=== PATIENT | female | born 1980 | race Caucasian/White ===

== ENCOUNTER 2018-01-01 07:51 | Inpatient (IN) | payer BC ==
[~2018-01-01] VITALS: Ht 157.5 cm; Wt 61.4 kg
[~2018-01-01 07:51] MED LIST: BENADRYL25 MG PO; MULTIVITAMIN1 EAC2 PO; NEXIUM40 MG PO
[2018-01-01 08:29] LABS: HEMOGLOBIN 14.1 G/DL (11.9-15.5); MCH 31.3 PG (29.0-34.0); MCHC 34.4 G/DL (30.0-36.0); MCV 90.9 FL (83-99); PLATELET COUNT 291 K/uL (156-360); RBC DIS.WIDTH-CV 11.9 % (11.8-14.6); RBC DIS.WIDTH-SD 39.5 % (39-53); RED BLOOD COUNT 4.51 M/uL (3.80-5.20); WHITE BLOOD COUNT 8.6 K/uL (4.1-10.2)
[2018-01-01 08:40] LABS: ALBUMIN 4.6 g/dL (3.2-4.8); CHLORIDE 108 mEq/L (99-109); POTASSIUM 3.8 mEq/L (3.7-5.4); SODIUM 141 mEq/L (136-147)
[2018-01-01 08:43] LABS: GLUCOSE 107 mg/dL (70-99); TOTAL PROTEIN 7.6 g/dL (6.4-8.3)
[2018-01-01 08:45] LABS: TOTAL BILIRUBIN 0.4 mg/dL (0.0-1.0)
[2018-01-01 08:46] LABS: ALKALINE PHOSPHATASE 41 IU/L (3-129); CREATININE 0.8 mg/dL (0.6-1.3); GFR ESTIMATE (CALCULATED) > 59 mL/min/
[2018-01-01 08:48] LABS: AST (GOT) 31 IU/L (2-34); UREA NITROGEN (BUN) 8 mg/dL (9-23)
[2018-01-01 08:49] LABS: ALT (GPT) 10 IU/L (3-49)
[2018-01-01 08:50] LABS: LIPASE 25 U/L (1.0-51.0)
[2018-01-01 08:57] LABS: QUANTITATIVE HCG < 4.0 MIU/ML
[2018-01-01 12:10] LABS: APPEARANCE CLEAR ((CLEAR)); BILIRUBIN NEGATIVE; BLOOD NEGATIVE; COLOR YELLOW ((YELLOW)); GLUCOSE (STRIP) NEGATIVE; KETONES 20; LEUKOCYTES TRACE; NITRITE NEGATIVE; PROTEIN (STRIP) NEGATIVE; UROBILINOGEN 0.2 MG/DL (0.2-1.0)
[2018-01-01 12:16] LABS: SPECIFIC GRAVITY > 1.060 (1.000-1.030)
[2018-01-01 12:18] LABS: BACTERIA NONE SEEN /HPF; EPITHELIAL CELLS 1+ /HPF; MUCUS TRACE /LPF; RED BLOOD CELLS 0-5 /HPF (0-5); UCUL ADDED? NO; WHITE BLOOD CELLS 0-5 /HPF (0-5)
[2018-01-01 15:35] VITALS: BP 106/55
[2018-01-01 20:14] VITALS: BP 112/60
[2018-01-01 23:48] VITALS: BP 99/55
[2018-01-02 04:04] VITALS: BP 110/53
[2018-01-02 06:13] LABS: HEMATOCRIT 25.7 % (36.0-46.0); HEMOGLOBIN 8.5 G/DL (11.9-15.5); MCH 30.8 PG (29.0-34.0); MCHC 33.1 G/DL (30.0-36.0); MCV 93.1 FL (83-99); PLATELET COUNT 218 K/uL (156-360); RBC DIS.WIDTH-CV 12.1 % (11.8-14.6); RBC DIS.WIDTH-SD 41.4 % (39-53); RED BLOOD COUNT 2.76 M/uL (3.80-5.20)
[2018-01-02 06:37] LABS: CHLORIDE 109 MEQ/L (99-109); CREATININE 0.9 MG/DL (0.6-1.3); GFR ESTIMATE (CALCULATED) > 59 mL/min/; GLUCOSE 123 mg/dL (70-99); POTASSIUM 3.9 MEQ/L (3.7-5.4); SODIUM 141 MEQ/L (136-147); UREA NITROGEN (BUN) 14 mg/dL (9-23)
[2018-01-02 07:07] VITALS: BP 93/55
[2018-01-02 09:04] LABS: HEMATOCRIT 24.9 % (36.0-46.0); HEMOGLOBIN 8.3 G/DL (11.9-15.5); MCHC 33.3 G/DL (30.0-36.0); MCV 92.9 FL (83-99); PLATELET COUNT 208 K/uL (156-360); RBC DIS.WIDTH-CV 12.3 % (11.8-14.6); RED BLOOD COUNT 2.68 M/uL (3.80-5.20); WHITE BLOOD COUNT 13.8 K/uL (4.1-10.2)
[2018-01-02 11:56] VITALS: BP 103/86
[2018-01-02 15:07] VITALS: BP 102/57
[2018-01-02 18:08] LABS: HEMATOCRIT 23.5 % (36.0-46.0); HEMOGLOBIN 7.7 G/DL (11.9-15.5); MCH 30.4 PG (29.0-34.0); MCHC 32.8 G/DL (30.0-36.0); MCV 92.9 FL (83-99); PLATELET COUNT 199 K/uL (156-360); RBC DIS.WIDTH-CV 12.2 % (11.8-14.6); RED BLOOD COUNT 2.53 M/uL (3.80-5.20)
[2018-01-02 19:48] VITALS: BP 116/65
[2018-01-02 22:57] VITALS: BP 101/59
[2018-01-03 03:29] VITALS: BP 101/58
[2018-01-03 06:26] LABS: HEMATOCRIT 23.1 % (36.0-46.0); HEMOGLOBIN 7.5 G/DL (11.9-15.5); MCH 30.7 PG (29.0-34.0); MCHC 32.5 G/DL (30.0-36.0); MCV 94.7 FL (83-99); PLATELET COUNT 184 K/uL (156-360); RBC DIS.WIDTH-CV 12.2 % (11.8-14.6); RBC DIS.WIDTH-SD 42.4 % (39-53); RED BLOOD COUNT 2.44 M/uL (3.80-5.20); WHITE BLOOD COUNT 8.9 K/uL (4.1-10.2)
[2018-01-03 06:50] LABS: CHLORIDE 106 MEQ/L (99-109); CREATININE 0.7 MG/DL (0.6-1.3); GFR ESTIMATE (CALCULATED) > 59 mL/min/; GLUCOSE 102 mg/dL (70-99); POTASSIUM 3.7 MEQ/L (3.7-5.4); SODIUM 138 MEQ/L (136-147); UREA NITROGEN (BUN) 9 mg/dL (9-23)
[2018-01-03 07:12] VITALS: BP 108/65
[2018-01-03 15:13] VITALS: BP 115/60
[2018-01-04] VITALS (7 sets, daily range): BP systolic 101–125; BP diastolic 53–88
[2018-01-04 06:14] LABS: HEMATOCRIT 22.2 % (36.0-46.0); HEMOGLOBIN 7.3 G/DL (11.9-15.5); MCH 30.3 PG (29.0-34.0); MCHC 32.9 G/DL (30.0-36.0); MCV 92.1 FL (83-99); PLATELET COUNT 191 K/uL (156-360); RBC DIS.WIDTH-CV 11.4 % (11.8-14.6); RBC DIS.WIDTH-SD 38.9 % (39-53); RED BLOOD COUNT 2.41 M/uL (3.80-5.20); WHITE BLOOD COUNT 5.9 K/uL (4.1-10.2)
[2018-01-04 06:39] LABS: CHLORIDE 106 MEQ/L (99-109); CREATININE 0.7 MG/DL (0.6-1.3); GFR ESTIMATE (CALCULATED) > 59 mL/min/; GLUCOSE 95 mg/dL (70-99); POTASSIUM 3.5 MEQ/L (3.7-5.4); SODIUM 138 MEQ/L (136-147); UREA NITROGEN (BUN) 6 mg/dL (9-23)
[2018-01-04 14:21] LABS: HEMATOCRIT 25.1 % (36.0-46.0); HEMOGLOBIN 8.5 G/DL (11.9-15.5); MCH 31.3 PG (29.0-34.0); MCHC 33.9 G/DL (30.0-36.0); MCV 92.3 FL (83-99); PLATELET COUNT 221 K/uL (156-360); RBC DIS.WIDTH-CV 11.6 % (11.8-14.6); RBC DIS.WIDTH-SD 38.9 % (39-53); RED BLOOD COUNT 2.72 M/uL (3.80-5.20); WHITE BLOOD COUNT 6.7 K/uL (4.1-10.2)
[2018-01-05 06:16] LABS: HEMATOCRIT 22.5 % (36.0-46.0); HEMOGLOBIN 7.5 G/DL (11.9-15.5); MCH 30.5 PG (29.0-34.0); MCHC 33.3 G/DL (30.0-36.0); MCV 91.5 FL (83-99); PLATELET COUNT 243 K/uL (156-360); RBC DIS.WIDTH-CV 11.5 % (11.8-14.6); RBC DIS.WIDTH-SD 38.5 % (39-53); RED BLOOD COUNT 2.46 M/uL (3.80-5.20); WHITE BLOOD COUNT 5.7 K/uL (4.1-10.2)
[2018-01-05 07:38] VITALS: BP 105/66
[2018-01-05 10:53] VITALS: BP 125/71
[2018-01-05 15:39] VITALS: BP 113/70
[2018-01-05 22:34] VITALS: BP 120/77
[2018-01-06 06:59] LABS: HEMATOCRIT 24.6 % (36.0-46.0); HEMOGLOBIN 8.1 G/DL (11.9-15.5); MCH 30.3 PG (29.0-34.0); MCHC 32.9 G/DL (30.0-36.0); MCV 92.1 FL (83-99); PLATELET COUNT 300 K/uL (156-360); RBC DIS.WIDTH-CV 11.6 % (11.8-14.6); RBC DIS.WIDTH-SD 39.1 % (39-53); RED BLOOD COUNT 2.67 M/uL (3.80-5.20); WHITE BLOOD COUNT 7.2 K/uL (4.1-10.2)
[2018-01-06 07:25] VITALS: BP 128/80
[2018-01-06 07:26] LABS: CHLORIDE 107 MEQ/L (99-109); CREATININE 0.7 MG/DL (0.6-1.3); GFR ESTIMATE (CALCULATED) > 59 mL/min/; GLUCOSE 111 mg/dL (70-99); SODIUM 140 MEQ/L (136-147); UREA NITROGEN (BUN) 3 mg/dL (9-23)
[2018-01-06 07:28] LABS: POTASSIUM 4.5 MEQ/L (3.7-5.4)
[2018-01-06] MEDS ORDERED: PERCOCET 5/31 TABLET PO (08:32)
[2018-01-06] MEDS ORDERED: COLACE100 MG PO (08:32)
[2018-01-06 15:02] VITALS: BP 116/56
== END 2018-01-06 16:45 | disposition home or self-care (01) | DRG 330 ==
LOC: EME 07:51 → EDOF 14:07 → 2EAST 14:07 → ENRESERV 14:22 → 2EAST 15:25
PROVIDERS: Nurse Practitioner Family; Surgery
PROC: 0DTH0ZZ Resection of Cecum, Open Approach (ICD-10-PCS; principal; 2018-01-01)
DX: K56.2 Volvulus (principal); E86.0 Dehydration; K92.1 Melena; K21.9 Gastro-esophageal reflux disease without esophagitis; Z87.891 Personal history of nicotine dependence
CPT/HCPCS: 71046; 74177; 80048; 80053; 81003; 83605; 83690; 84702; 85027; 86850; 86900; 86901; 88307; 93005; 99281; 99285; C9113; J0131; J0610; J1100; J1170; J1650; J1885; J2250; J2270; J2405; J2710; J2765; J3010; J7030; J7050; J7120; S0074